=== PATIENT | male | born 1960 | race Two or more races ===

== ENCOUNTER 2023-05-04 00:39 | Inpatient (IN) | payer MEDICAID, OTHER ==
[~2023-05-04] VITALS: Ht 160 cm; Wt 91.0 kg
[2023-05-04] VITALS (8 sets, daily range): BP systolic 130–169; BP diastolic 60–80; PULSE 58–74; RESP 16–61; TEMP 98.1–98.8; O2SAT 95–97
[2023-05-04] MEDS ORDERED: LABETALOL HCL 5 MG/ML 4ML SYRINGE IV ONE (01:15)
[2023-05-04 01:16] LABS: Alanine Aminotransferase 47 U/L (7-40); Albumin 4.8 g/dL (3.2-4.8); Alkaline Phosphatase 83 U/L (46-116); Anion Gap 5 (5-15); Aspartate Aminotransferase 21 U/L (13-40); BUN/Creatinine Ratio 14.9 (10.0-20.0); Blood Urea Nitrogen 18 mg/dL (9-23); Calcium 9.5 mg/dL (8.7-10.4); Carbon Dioxide 27 mmol/L (20-30); Chloride 105 mmol/L (98-107); Glucose 243 mg/dL (74-106); Magnesium 2.1 mg/dL (1.6-2.6); Potassium 3.3 mmol/L (3.5-5.1); Sodium 137 mmol/L (136-145)
[2023-05-04 01:17] LABS: Bilirubin, Total 0.7 mg/dL (0.2-1.0); Total Protein 7.6 g/dL (5.7-8.2)
[2023-05-04 01:18] LABS: INR 1.08 (0.9-1.15); Partial Thromboplastin Time 27.6 SEC (24.5-34.5); Prothrombin Time 11.3 sec (9.3-11.8)
[2023-05-04] MEDS ORDERED: ONDANSETRON HCL 4 MG/2 ML VIAL IV ONE (01:45)
[2023-05-04 02:15] LABS: Basophils # (auto) 0 10 ^3/uL (0-0.2); Basophils % (auto) 0.4 % (0.0-2.0); Eosinophils # (auto) 0.1 10 ^3/uL (0-0.8); Eosinophils % (auto) 0.7 % (0.0-7.0); Hematocrit 42.7 % (41.0-53.0); Hemoglobin 15.2 g/dL (13.5-17.5); Lymphocytes # (auto) 2.8 10 ^3/uL (0.4-5.4); Lymphocytes % (auto) 34.1 % (10.0-50.0); Mean Corpuscular Hemoglobin 33.1 pg (28.0-32.0); Mean Corpuscular Hgb Conc. 35.7 g/dL (32.0-36.0); Mean Corpuscular Volume 92.9 fL (80.0-100.0); Monocytes # (auto) 0.7 10 ^3/uL (0-1.3); Monocytes % (auto) 8.8 % (0.0-12.0); Neutrophils # (auto) 4.6 10 ^3/uL (1.6-8.6); Nucleated Red Blood Cells % 0.2 %; Red Blood Cells 4.59 10^6/uL (4.5-5.90); Red Cell Distribution Width 13.4 % (11.8-14.3); White Blood Cell 8.2 10^3/uL (4.4-10.8)
[2023-05-04] MEDS ORDERED: ASPirin 325 MG TAB PO ONE (02:15)
[2023-05-04 03:00] LABS: Giant Platelets Few; Large Platelets FEW; Platelet Estimate Decreased
[2023-05-04] MEDS ORDERED: DEXTROSE (50%) 50ML SYRG IV PRN ×2 (03:00→16:15)
[2023-05-04] MEDS ORDERED: NITROGLYCERIN 0.4 MG SL TAB SL PRN (03:00)
[2023-05-04] MEDS ORDERED: hydrALAZINE HCL 20 MG/ML VL IV PRN (03:00)
[2023-05-04] MEDS ORDERED: MORPHINE SULFATE INJ 2 MG/ml SYRG IV PRN (03:00)
[2023-05-04] MEDS ORDERED: ACETAMINOPHEN 325 MG TAB PO PRN (03:00)
[2023-05-04] MEDS ORDERED: ONDANSETRON HCL 4 MG/2 ML VIAL IV PRN (03:00)
[2023-05-04] MEDS ORDERED: POTASSIUM CHL 20 Meq TABLET PO ONE ×2 (03:15→11:45)
[2023-05-04 03:50] LABS: Triglycerides 327 mg/dL (< 150)
[2023-05-04 03:51] LABS: LDL Cholesterol 72 mg/dL (< 100)
[2023-05-04 03:52] LABS: HDL Cholesterol 46 mg/dL (40-59)
[2023-05-04 03:53] LABS: Cholesterol 141 mg/dL (< 200)
[2023-05-04] MEDS ORDERED: METF-372 PO (05:58)
[2023-05-04] MEDS ORDERED: AML5T PO (05:58)
[2023-05-04] MEDS: InsuLIN REG 1unit/0.01ml Soln (100units/ml) SC SCH ×3 (06:37→17:44)
[2023-05-04] MEDS: ACCU-CHEK COMFORT CURVE STRIP VI SCH ×4 (06:37→22:23)
[2023-05-04] MEDS: ASPirin 81 mg TAB PO SCH (09:31)
[2023-05-04] MEDS: amLODIPine BESYLATE 5 MG TAB PO SCH (09:32)
[2023-05-04] MEDS ORDERED: LISINOPRIL 10 MG TAB PO SCH (10:00)
[2023-05-04] MEDS ORDERED: ENOXAPARIN SOD 40 MG/0.4 ML SYRINGE SC SCH (10:00)
[2023-05-04] MEDS ORDERED: METOPROLOL TARTRATE 25 MG TAB PO SCH (10:00)
[2023-05-04] MEDS ORDERED: LISINOPRIL 20 MG TAB PO SCH (10:00)
[2023-05-04] MEDS: AMIODARONE HCL 200 MG TAB PO SCH ×2 (13:33→22:00)
[2023-05-04] MEDS: METOPROLOL TARTRATE 25 MG TAB PO SCH ×2 (13:35→22:00)
[2023-05-04 18:58] LABS: Urine Bacteria NONE SEEN /hpf (None Seen); Urine Blood Negative /uL (Negative); Urine Clarity Clear (Clear); Urine Color Yellow (Yellow); Urine Protein, UAD Negative (Negative); Urine Specific Gravity 1.017 (1.001-1.035); Urine Urobilinogen Normal (Negative); Urine WBC 3 /hpf (0 - 3)
[2023-05-04] MEDS ORDERED: ATORVASTATIN 20 MG TAB PO SCH ×2 (22:00)
[2023-05-04] MEDS ORDERED: InsuLIN REG 1unit/0.01ml Soln (100units/ml) SC SCH (22:00)
[2023-05-04] MEDS: APIXABAN 5 MG TAB PO SCH (22:19)
[2023-05-05] VITALS (7 sets, daily range): BP systolic 135–177; BP diastolic 70–86; PULSE 54–63; RESP 17–20; TEMP 36.9; O2SAT 94–96
[2023-05-05 05:52] LABS: Basophils # (auto) 0 10 ^3/uL (0-0.2); Basophils % (auto) 0.5 % (0.0-2.0); Eosinophils # (auto) 0.1 10 ^3/uL (0-0.8); Eosinophils % (auto) 1.6 % (0.0-7.0); Hematocrit 39.9 % (41.0-53.0); Hemoglobin 14.2 g/dL (13.5-17.5); Lymphocytes # (auto) 1.9 10 ^3/uL (0.4-5.4); Lymphocytes % (auto) 31.1 % (10.0-50.0); Mean Corpuscular Hemoglobin 32.8 pg (28.0-32.0); Mean Corpuscular Hgb Conc. 35.6 g/dL (32.0-36.0); Monocytes # (auto) 0.5 10 ^3/uL (0-1.3); Monocytes % (auto) 8.7 % (0.0-12.0); Neutrophils # (auto) 3.5 10 ^3/uL (1.6-8.6); Neutrophils % (auto) 58.1 % (37.0-80.0); Nucleated Red Blood Cells % 0.1 %; Red Blood Cells 4.34 10^6/uL (4.5-5.90); Red Cell Distribution Width 13.1 % (11.8-14.3)
[2023-05-05 06:09] LABS: Alanine Aminotransferase 46 U/L (7-40); Albumin 3.9 g/dL (3.2-4.8); Alkaline Phosphatase 72 U/L (46-116); Anion Gap 6 (5-15); Aspartate Aminotransferase 20 U/L (13-40); BUN/Creatinine Ratio 16.2 (10.0-20.0); Blood Urea Nitrogen 16 mg/dL (9-23); Calcium 8.8 mg/dL (8.7-10.4); Carbon Dioxide 25 mmol/L (20-30); Chloride 109 mmol/L (98-107); Glucose 158 mg/dL (74-106); Magnesium 2.1 mg/dL (1.6-2.6); Potassium 3.6 mmol/L (3.5-5.1); Sodium 140 mmol/L (136-145)
[2023-05-05 06:10] LABS: Bilirubin, Total 1.2 mg/dL (0.2-1.0); Total Protein 6.2 g/dL (5.7-8.2)
[2023-05-05] MEDS: ACCU-CHEK COMFORT CURVE STRIP VI SCH ×3 (06:40→17:00)
[2023-05-05] MEDS: InsuLIN REG 1unit/0.01ml Soln (100units/ml) SC SCH ×3 (06:44→17:00)
[2023-05-05] MEDS ORDERED: POTASSIUM EFFERVESENT TAB 25 MEQ PO ONE (07:30)
[2023-05-05] MEDS: amLODIPine BESYLATE 5 MG TAB PO SCH (09:03)
[2023-05-05] MEDS: ASPirin 81 mg TAB PO SCH (09:04)
[2023-05-05] MEDS: APIXABAN 5 MG TAB PO SCH (09:04)
[2023-05-05] MEDS ORDERED: AMIODARONE HCL 200 MG TAB PO SCH (10:00)
[2023-05-05] MEDS ORDERED: METOPROLOL TARTRATE 25 MG TAB PO SCH (10:00)
[2023-05-05] MEDS ORDERED: LOSARTAN POTASSIUM 50 MG TAB PO SCH (10:00)
[2023-05-05] MEDS ORDERED: AMIO200T33 PO (10:23)
[2023-05-05] MEDS ORDERED: APIX5TAB PO ×2 (10:23→10:50)
[2023-05-05] MEDS ORDERED: LOSA50TA46 PO (10:23)
== END 2023-05-05 17:20 | disposition home or self-care (01) | DRG 199 ==
LOC: ER 00:39 → TELE 03:02 → TELE-EAST 05:36
PROVIDERS: ADMIT Internal Medicine; ATTEND Student in an Organized Health Care Education/Training Program
DX: I16.0 Hypertensive urgency (principal); I24.9 Acute ischemic heart disease, unspecified; I25.110 Atherosclerotic heart disease of native coronary artery with unstable angina pectoris; I48.92 Unspecified atrial flutter; I48.91 Unspecified atrial fibrillation; E11.9 Type 2 diabetes mellitus without complications; I10 Essential (primary) hypertension; R00.1 Bradycardia, unspecified; E66.9 Obesity, unspecified; E78.5 Hyperlipidemia, unspecified; Z79.84 Long term (current) use of oral hypoglycemic drugs; Z68.35 Body mass index [BMI] 35.0-35.9, adult
CPT/HCPCS: 36415; 71045; 80053; 80061; 81001; 82962; 83036; 83735; 83880; 84443; 84484; 85025; 85610; 85730; 93005; 93306; 96372; 96374; 96375; 99291; G0378; J1815; J3490